=== PATIENT | male | born 1995 | race African-American/Black ===

== ENCOUNTER → 2016-12-03 | Outpatient (CLI) | payer OTHER ==
--- NOTE | 2016-12-03 12:09 | DIAGNOSTIC IMAGING REPORT ---
LEFT KNEE MRI HISTORY: Left knee pain. ACL AND MCL Tear; left KNEE COMPARISON STUDY: None. TECHNIQUE: Multiplanar multisequence MRI of the left knee was performed according to standard department protocol without the use of contrast. FINDINGS: Menisci: There is meniscocapsular separation at the medial meniscus. Otherwise, the medial meniscus is intact. The posterior horn and body of the lateral meniscus is severely macerated and displaced into the lateral meniscal gutter best seen on coronal image 18. Ligaments: Full-thickness ACL tear. The PCL is and LCL are intact. There is edema surrounding the MCL. However, the majority of the MCL fibers appear intact. There may be a low-grade partial tear distally within the MCL. Extensor mechanism: Quadriceps tendon appears intact. A partial tear at the distal patellar ligament. Articular cartilage and bone: The medial and patellofemoral cartilage is maintained. However, best seen on sagittal image 18 there is a full-thickness tear with a focal full-thickness cartilage defect at the lateral femoral condyle anteriorly. There is also delamination of the anterior cartilage from the bone. Deep to this area of full-thickness cartilage defect there is suggestion of a small impaction fracture which is not significantly displaced. The fracture area measures 7 mm. There is associated marrow edema within the lateral femoral condyle. Best seen on coronal image 12 there is a 1 cm displaced cartilage fragment anterior to the joint space. Joint effusion: Moderate effusion. Hypointense debris within the suprapatellar joint space favors a hemarthrosis. Soft tissues: Extensive subcutaneous and deep soft tissue edema within the knee. There is also edema within the visualized distal quadriceps muscles and popliteus muscle consistent with a muscular strain. IMPRESSION: 1. Full-thickness ACL tear. 2. Meniscocapsular separation of the medial meniscus. 3. Severely macerated/torn and displaced body and posterior horn of the lateral meniscus. The displaced fragments extending into the meniscal gutter. 4. Edema surrounding the MCL fibers. The majority of which appear intact. This is consistent with a grade I injury. There may be a low-grade partial tear within the distal MCL fibers. 5. Focal full-thickness cartilage defect with associated delamination of the cartilage from the bone within the anterior aspect of the lateral femoral condyle. Deep to this cartilage abnormality there is suggestion of a small nondisplaced impacted fracture. There is a 1 cm cartilage fragment anterior to the lateral joint space consistent with a loose body. 6. Moderate hemarthrosis. 7. Partial tear of the distal patellar ligament. 8. Extensive subcutaneous and deep soft tissue edema with muscular strains of the distal quadriceps muscles and popliteus muscle. Electronically signed by: Santo Henriquez M.D. 12/03/2016 12:07 PM Dictated Date/Time: 12/03/2016 11:52 AM
== END | disposition home or self-care (01) ==
LOC: C.MRI 10:35
PROVIDERS: ATTEND Family Medicine
DX: S83.512A Sprain of anterior cruciate ligament of left knee, initial encounter (principal); X58.XXXA Exposure to other specified factors, initial encounter